=== PATIENT | male | born 1955 | race Caucasian/White ===

== ENCOUNTER 2017-11-16 10:17 | Emergency (ER) | payer MEDICAID ==
[~2017-11-16] VITALS: Ht 177.8 cm; Wt 79.4 kg
[~2017-11-16 10:17] MED LIST: ASPI-498 OR; ATOR20TA50 PO; CLOP75TA28 PO; FAMO-12 PO; LISI40TA PO; LORA-654 PO; NICO7DIS19 TD; NITR0.4S29 SL; ONDA4TAB5 PO; POT20T PO
[2017-11-16 10:26] VITALS: BP 184/117
[2017-11-16] MEDS ORDERED: traMADol HCL 50 MG TAB PO ONE (12:45)
== END 2017-11-16 13:41 | disposition home or self-care (01) ==
LOC: ER 10:17
DX: S63.502A Unspecified sprain of left wrist, initial encounter (principal); J20.9 Acute bronchitis, unspecified; K21.9 Gastro-esophageal reflux disease without esophagitis; E78.5 Hyperlipidemia, unspecified; I25.2 Old myocardial infarction; I11.0 Hypertensive heart disease with heart failure; I50.9 Heart failure, unspecified; Z90.49 Acquired absence of other specified parts of digestive tract; X50.1XXA Overexertion from prolonged static or awkward postures, initial encounter; Y93.89 Activity, other specified; Y99.8 Other external cause status; Y92.89 Other specified places as the place of occurrence of the external cause
CPT/HCPCS: 71046; 73100; 93005